=== PATIENT | female | born 1965 | race Caucasian/White ===

== ENCOUNTER → 2016-11-19 | Outpatient (CLI) | payer BC | END | disposition home or self-care (01) | LOC: C.PAPS 14:01 | PROVIDERS: ATTEND Obstetrics & Gynecology | DX: Z01.419 Encounter for gynecological examination (general) (routine) without abnormal findings (principal) ==

== ENCOUNTER → 2017-04-07 | Outpatient (CLI) | payer BC ==
--- NOTE | 2017-04-07 08:22 | DIAGNOSTIC IMAGING REPORT ---
THYROID ULTRASONOGRAPHY CLINICAL HISTORY: HYPOTHYROIDISM/ COMPARISON STUDY: No previous studies for comparison. FINDINGS: The right of the thyroid measures 41 x 18 x 17 mm. The left lobe measures 33 x 14 x 12 mm. Both lobes are heterogeneous in echotexture without evidence of a dominant mass. IMPRESSION: Diffusely heterogeneous thyroid echotexture, without evidence of a dominant mass Electronically signed by: Fredy Marks M.D. 04/07/2017 8:21 AM Dictated Date/Time: 04/07/2017 8:19 AM
--- NOTE | 2017-04-07 08:32 | DIAGNOSTIC IMAGING REPORT ---
CERVICAL SPINE 5 VIEWS HISTORY: RADICULOPATHY CERVICAL COMPARISON: None. FINDINGS: The cervical spine is visualized from C1 through the superior endplate of T1. There is no fracture. 2 mm of anterolisthesis of C4 on C5. This is likely due to long-standing degenerative change. Moderate disc space narrowing and endplate osteophytes at C5-C6 and C6-C7. Moderate facet degenerative changes within the lower cervical spine. Mild to moderate left-sided neural foraminal narrowing at C5-C6. Mild to moderate right-sided neural foraminal narrowing at C3-C4. Prevertebral soft tissues and the atlantodens interval are intact. IMPRESSION: 1. No fractures within the cervical spine. 2. 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 3. Bilateral neural foraminal narrowing as described above. 4. There is 2 mm of anterolisthesis of C4 on C5. This favors long-standing degenerative change. Electronically signed by: Carroll Ferguson M.D. 04/07/2017 8:31 AM Dictated Date/Time: 04/07/2017 8:28 AM
== END | disposition home or self-care (01) ==
LOC: C.ULTR 07:44
PROVIDERS: ATTEND Family Medicine
DX: E03.9 Hypothyroidism, unspecified (principal); M54.12 Radiculopathy, cervical region

== ENCOUNTER → 2017-10-16 | Outpatient (CLI) | payer BC ==
--- NOTE | 2017-10-20 15:17 | MAMMOGRAPHY REPORT ---
BILATERAL DIGITAL SCREENING MAMMOGRAM TOMOSYNTHESIS WITH CAD: 10/16/2017 CLINICAL HISTORY: Routine screening. Patient has no complaints. TECHNIQUE: Breast tomosynthesis in addition to standard 2D mammography was performed. Current study was also evaluated with a Computer Aided Detection (CAD) system. COMPARISON: No prior exams were available for comparison. BREAST COMPOSITION: The tissue of both breasts is almost entirely fatty. FINDINGS: No suspicious mass, architectural distortion or cluster of microcalcifications is seen. IMPRESSION: ACR BI-RADS CATEGORY 1: NEGATIVE There is no mammographic evidence of malignancy. Prior outside mammograms are currently being reques jennifer and if obtained they will be reviewed, compared to the current exam to assess for any more subtle changes, and an addendum will be made to this report. Otherwise, a 1 year screening mammogram is re commended. The patient will receive written notification of the results. Approximately 10% of breast cancers are not detected with mammography. A negative mammographic report should not delay biopsy if a clinically suggestive mass is present. Viridiana Leija M.D. ay/:10/20/2017 08:03:35 Converting Supervisor: Radha Harvey, [facility] letter sent: Normal 1/2 BI-RADS Code: ACR BI-RADS Category 1: Negative
== END | disposition home or self-care (01) ==
LOC: C.MAMM 14:28
PROVIDERS: ATTEND Family Medicine
DX: Z12.31 Encounter for screening mammogram for malignant neoplasm of breast (principal)

== ENCOUNTER → 2017-10-30 | Outpatient (CLI) | payer BC | END | disposition home or self-care (01) | LOC: C.RDSM 11:09 | PROVIDERS: ATTEND Orthopaedic Surgery Sports Medicine | DX: Z87.39 Personal history of other diseases of the musculoskeletal system and connective tissue (principal) ==

== ENCOUNTER → 2017-11-24 | Outpatient (CLI) | payer BC | END | disposition home or self-care (01) | LOC: C.MAMM 11:21 | PROVIDERS: ATTEND Family Medicine | DX: M85.852 Other specified disorders of bone density and structure, left thigh (principal); R29.890 Loss of height ==